=== PATIENT | male | born 1980 | race African-American/Black ===

== ENCOUNTER 2020-08-12 12:57 | Emergency (ER) | payer BC ==
[~2020-08-12] VITALS: Ht 165.1 cm; Wt 94.8 kg
--- NOTE | 2020-08-12 13:00 | NUR ---
at bedside for assessent
--- NOTE | 2020-08-12 13:15 | NUR ---
Xry of rigpablo dobbins taken at bedside
--- NOTE | 2020-08-12 13:31 | NUR ---
Patient discharged to home in stable condition. Patient noted walking with steady gait, took all belongings, Written and verbal after care instructions given. Patient verbalizes understanding of instructions. Stressed follow up or return to ER for worsening s/s.
[2020-08-12 13:32] VITALS: BP 139/67
== END 2020-08-12 13:30 | disposition home or self-care (01) ==
LOC: ER 12:57
DX: S60.221A Contusion of right hand, initial encounter (principal); W22.8XXA Striking against or struck by other objects, initial encounter; Y93.89 Activity, other specified; Y92.89 Other specified places as the place of occurrence of the external cause; Y99.8 Other external cause status
CPT/HCPCS: 73130; A4663